=== PATIENT | female | born 1995 | race Caucasian/White ===

== ENCOUNTER 2024-02-16 11:41 | Emergency (ER) | payer OTHER, SELFPAY ==
[~2024-02-16] VITALS: Ht 160 cm; Wt 68.2 kg
[~2024-02-16 11:41] MED LIST: FERR325T27 PO; IBUP-1492 PO; PREN-27 PO
[2024-02-16 11:49] VITALS: TEMP 98.2
[2024-02-16 12:25] VITALS: BP 124/76; PULSE 75; RESP 16; O2SAT 99
[2024-02-16 12:30] LABS: BASOPHILS % (AUTO) 0.4 % (0.0-2.0); EOSINOPHILS % (AUTO) 2.5 % (1.0-6.0); HEMATOCRIT 38.8 % (36-46); LYMPHOCYTES # (AUTO) 1.8 K/uL (1.0-4.8); LYMPHOCYTES % (AUTO) 21.2 % (22.0-44.0); MEAN CORPUSCULAR HEMOGLOBIN 29.9 pg (26.0-34.0); MEAN CORPUSCULAR HGB CONC 33.4 G/dL (31.0-37.0); MEAN CORPUSCULAR VOLUME 90 fL (80-100); MONOCYTES # (AUTO) 0.7 K/uL (0.1-1.0); MONOCYTES % (AUTO) 8.4 % (2.0-9.0); NEUTROPHILS # (AUTO) 5.7 K/uL (1.8-7.7); NEUTROPHILS % (AUTO) 67.5 % (40.0-70.0); PLATELET COUNT (AUTO) 253 K/uL (150-450); RED BLOOD CELL COUNT(AUTO) 4.33 MIL/uL (4.00-5.20); RED CELL DISTRIBUTION WIDTH 13.4 % (11.5-14.5); WHITE BLOOD COUNT (AUTO) 8.5 K/uL (4.5-11.0)
[2024-02-16 13:26] LABS: ANION GAP 7 mmol/L (8-16); CALCIUM, TOTAL 8.4 mg/dL (8.8-10.5); CARBON DIOXIDE 26 mmol/L (22-29); CHLORIDE 104 mmol/L (98-107); CREATININE 0.65 mg/dL (0.60-1.30); GLOMERULAR FILTR. RATE CALC > 60 mL/min (>60); GLUCOSE,RANDOM 85 mg/dL (70-110); SODIUM SERUM 137 mmol/L (136-145); UREA NITROGEN, BLOOD 13 mg/dL (7-18)
[2024-02-16 13:39] LABS: HCG,QUANTITATIVE < 1 mIU/mL (0-6)
[2024-02-16] MEDS: SODIUM CHLORIDE 0.9% 1,000 ML IV ONE (14:24)
[2024-02-16] MEDS: KETOROLAC TROMETHAMINE 30 MG/ML VIAL IVP ONE (14:24)
[2024-02-16] MEDS: ACETAMINOPHEN 500 MG TABLET PO ONE (14:27)
[2024-02-16] MEDS: ONDANSETRON HCL 4 MG/2 ML VIAL IVP ONE (14:27)
[2024-02-16] MEDS ORDERED: IBUP-2492 PO (14:37)
[2024-02-16] MEDS: LORATADINE 10 MG TABLET PO ONE (14:41)
== END 2024-02-16 15:00 | disposition home or self-care (01) ==
LOC: EMS 11:41
DX: G43.909 Migraine, unspecified, not intractable, without status migrainosus (principal); R42 Dizziness and giddiness; E78.00 Pure hypercholesterolemia, unspecified
CPT/HCPCS: 80048; 84702; 85025; 99283; J1885; J2405; J7030